=== PATIENT | female | born 1935 | race Caucasian/White ===

== ENCOUNTER 2017-09-02 07:49 | Day surgery (SDC) | payer OTHER ==
[~2017-09-02] VITALS: Ht 167.6 cm; Wt 65.5 kg
[~2017-09-02 07:49] MED LIST: CALTTAB5 PO; CENTTAB9 PO; LOVA1TAB47 PO; MAGN500T4 OR; POTA20IN3 PO; VITA100018 OR; [UNRECOGNIZED DRUG - CODE] PO
[2017-09-02] MEDS ORDERED: LIDOCAINE HCL 1% 20 ML VIAL ONE (08:12)
[2017-09-02 08:15] VITALS: BP 148/72; PULSE 66; RESP 20; TEMP 97.4; O2SAT 99
[2017-09-02] MEDS ORDERED: MAGN500T5 PO (08:19)
[2017-09-02] MEDS ORDERED: METO25TA3 PO (08:19)
[2017-09-02] MEDS ORDERED: MULT-65 PO (08:19)
[2017-09-02] MEDS ORDERED: D 50CAP2 PO (08:19)
[2017-09-02] MEDS ORDERED: TAMO20TA6 PO (08:19)
[2017-09-02] MEDS ORDERED: POTA-163 PO (08:19)
[2017-09-02] MEDS ORDERED: AMLO5TAB2 PO (08:19)
[2017-09-02] MEDS ORDERED: SODIUM CHLOR 0.9% 1000 ML IV SCH (08:30)
[2017-09-02 08:49] LABS: AUTOMATED NEUTROPHIL # 1.4 TH/MM3 (1.8-7.7); BASOPHIL % 0.8 % (0.0-2.0); EOSINOPHIL # 0.1 TH/MM3 (0-0.4); EOSINOPHIL % 2.1 % (0.0-4.0); HEMATOCRIT 34.8 % (35.0-46.0); HEMOGLOBIN 12.2 GM/DL (11.6-15.3); LYMPH % 33.4 % (9.0-44.0); LYMPHOCYTE # 0.9 TH/MM3 (1.0-4.8); MEAN CELL VOLUME 100.7 FL (80.0-100.0); MEAN CORPUSCULAR HEMOGLOBIN 35.4 PG (27.0-34.0); MEAN CORPUSCULAR HGB CONC 35.1 % (32.0-36.0); MEAN PLATELET VOLUME 8.4 FL (7.0-11.0); MONO % 7.7 % (0.0-8.0); MONOCYTE # 0.2 TH/MM3 (0-0.9); PLATELET COUNT 160 TH/MM3 (150-450); RED BLOOD COUNT 3.46 MIL/MM3 (4.00-5.30); RED CELL DISTRIBUTION WIDTH 13.6 % (11.6-17.2); WHITE BLOOD COUNT 2.6 TH/MM3 (4.0-11.0)
[2017-09-02] MEDS ORDERED: MIDAZOLAM HCL 2 MG/2 ML VIAL ONE ×2 (08:51→09:18)
[2017-09-02 08:58] LABS: INTERNATIONAL NORMALIZED RATIO 1.1 RATIO; PROTHROMBIN TIME - PATIENT 10.9 SEC (9.8-11.6)
[2017-09-02 09:40] VITALS: BP 131/60; PULSE 67; RESP 20; TEMP 98; O2SAT 100
--- NOTE | 2017-09-02 09:41 | PD.RAD ---
Post CT Procedure Prog Note Pre Procedure Diagnosis: (1) Breast CA Post Procedure Diagnosis: (1) Breast CA Procedure Date: Sep 02, 2017 Supervising Radiologist: Ricky Jones Anesthesia: Local, Conscious Sedation Plan of Activity Patient to Unit: ROPU Patient Condition: Good See PACS Report for procedural detail/treatment Biopsy Imaging Guidance: CT Biopsy Procedure: Bone Marrow Specimen: Core Biopsy, Fine Needle Aspirate Fluid Removal (CCs): 6 Fluid Description: Bloody Ricky Jones MD Sep 02, 2017 09:41
[2017-09-02] MEDS ORDERED: oxyCODONE/ACETAMINOPHEN 5 MG/325 MG TAB PO PRN (09:45)
[2017-09-02 09:55] VITALS: BP 116/75; PULSE 66; RESP 18; O2SAT 98
--- NOTE | 2017-09-02 10:09 | RADRPT ---
EXAM DATE/TIME: 09/02/2017 09:09 [place] COMPARISON: No previous studies available for comparison. INDICATIONS : Leukopenia and macrocytic anemia. SEDATION TIME: 30 minutes BIOPSY SITE: MEDICATION(S): 1.) 4 mg midazolam (Versed) IV 2.) 100 mcg fentanyl (Sublimaze) IV DEVICE(S): 1.) 11 gauge Bone marrow biopsy needle MEDICAL HISTORY : Carcinoma, breast. Hypertension. Carcinoma, colon. SURGICAL HISTORY : None. ENCOUNTER: Initial ACUITY: 1 day PAIN SCORE: 0/10 LOCATION: Right pelvis A total of one core specimen(s) were obtained and sent to the laboratory for pathologic evaluation. PROCEDURE: 1. CT guided bone marrow biopsy. 2. Conscious sedation with continuous EKG and oximetry monitoring. 3. EKG and oximetry remained stable throughout the procedure. Prior to the procedure informed consent was obtained. Any appropriate prior imaging studies were rev iewed. Using automated exposure control and adjustment of the mA and/or kV according to patient size , radiation dose was kept as low as reasonably achievable to obtain optimal diagnostic quality images . DICOM format image data is available electronically for review and comparison. The site was prepped in a sterile fashion. Full sterile technique was used, including cap, mask, ericka rile gloves and gown and a large sterile sheet. Hand hygiene and 2% chlorhexidine and/or betadine/al cohol prep was utilized per protocol for cutaneous antisepsis. The skin and subcutaneous tissues wer e infiltrated with local anesthetic solution. With CT guidance the previously identified target was localized. Biopsy was performed using the presc ribed needle as above. Following biopsy marrow aspiration was performed with repeat puncture. Adequa te hemostasis was obtained with compression at the puncture site. Follow-up CT scan reveals no hemorrhage. Conscious sedation was performed with the prescribed dosages and duration as above in the presence of an independent trained radiology nurse to assist in the monitoring of the patient. EKG and oximetry remained stable throughout the procedure. The patient tolerated the procedure well and there were no complications. The patient was sent to Radiology Outpatient Unit in stable condition. CONCLUSION: 1. Uncomplicated CT guided bone marrow aspirate. 2. Uncomplicated CT guided bone marrow biopsy. Ricyk Jones MD on September 02, 2017 at 10:07 Board Certified Radiologist. This report was verified electronically.
[2017-09-02 10:25] VITALS: BP 113/60; PULSE 61; RESP 18; O2SAT 96
[2017-09-02 10:55] VITALS: BP 113/55; PULSE 69; RESP 18; O2SAT 98
[2017-09-02 11:25] VITALS: BP 124/67; PULSE 69; RESP 18; O2SAT 98
== END 2017-09-02 11:55 | disposition home or self-care (01) ==
LOC: HROP 07:49 → HRIP 07:53 → HROP 11:55
PROVIDERS: ATTEND Internal Medicine
DX: D72.819 Decreased white blood cell count, unspecified (principal); D53.9 Nutritional anemia, unspecified; C50.919 Malignant neoplasm of unspecified site of unspecified female breast; I10 Essential (primary) hypertension; Z85.038 Personal history of other malignant neoplasm of large intestine
CPT/HCPCS: 38221; 77012; 85025; 85097; 85610; 85730; 88184; 88185; 88237; 88264; 88305; 88311; 88313; 99152; 99153; C1830; G0364; J2250; J3010; J7030